=== PATIENT | male | born 1945 | race Caucasian/White ===

== ENCOUNTER → 2017-05-06 | Outpatient (CLI) | payer MEDICARE ==
[~2017-05-06] MED LIST: ACYCLOVIR800 MG PO; ASPIRIN 81MG TA81 MG PO; GABAPENTIN300 M1 PO; Glyburide and M1 TAB PO; LEVOTHYROXINE0.05 MG NG; LIVALO4 MG PO; LOPRESSOR 25MG.25 MG PO
[2017-05-06 11:59] LABS: HEMOGLOBIN 14.3 g/dL (14.1-18.0); LYMPH # 1.4 K/mm3 (0.7-4.5); LYMPH % 20.7 % (10-50)
[2017-05-06 12:33] LABS: BUN 22 mg/dL (7-18); GFR (ESTIMATED) 60 ML/MIN (>60)
== END ==
LOC: LAB 11:27
PROVIDERS: Emergency Medicine
DX: R53.83 Other fatigue (principal); E11.9 Type 2 diabetes mellitus without complications

== ENCOUNTER 2017-07-03 07:31 | Day surgery (SDC) | payer MEDICARE ==
[2017-07-03 08:08] LABS: HEMOGLOBIN 15.3 g/dL (14.1-18.0); LYMPH # 1.5 K/mm3 (0.7-4.5); LYMPH % 16.6 % (10-50)
[2017-07-03 08:27] LABS: BUN 19 mg/dL (7-18); GFR (ESTIMATED) 50 ML/MIN (>60)
--- NOTE | 2017-07-03 12:18 | RADIOLOGY REPORT PS360 ---
CARDIAC CATHETERIZATION DATE OF CATHETERIZATION:07/03/2017 11:11 AM PROCEDURES: 1. Left heart catheterization 2. Left ventriculogram 3. Selective coronary angiogram 4. Selective engagement of the left internal mammary artery with angiography 5. Selective engagement of the saphenous vein graft to the her complex artery 6. Drug-eluting stent deployment to the ostial proximal mid dominant right coronary artery 7. Drug-eluting stent deployment to the posterior descending artery INDICATION FOR TEST: 1. History of coronary artery disease 2. History of coronary artery bypass surgery 3. Angina pectoris class III and IV Informed consent was obtained prior to the procedure. COMPLICATIONS: None ESTIMATED BLOOD LOSS: Less than 10 ml. TECHNIQUE: One percent lidocaine was used to anesthetize the right groin. The right femoral artery was accessed via the Seldinger technique. A 4-German sheath was placed in the right femoral artery. The JL-4 and JR-4 catheter was also used to perform left heart catheterization left ventriculogram and selective coronary angiography. The JR4 catheter was used intubate the saphenous vein graft to the circumflex artery as well as selectively engage the left internal mammary artery. At the end of the diagnostic procedure 9000 units of heparin was administered intravenously giving an ACT out of range. Brilinta 180 mg was given orally. The 4 German sheath was exchanged for a 6 German sheath and an 3 DRC guide catheter was used intubate the right coronary artery. Immediately there was severe dampening upon engagement. With the guide catheter in the right coronary cusp choice PT extra-support wire was placed distally and a 3 mm x 12 mm resolute Alfa stent was deployed at 22 mckenna reducing the ostial stenosis to less than 10%. There was significant trouble getting just the smallest balloon pass the stent due to the calcification in the proximal segment. Eventually a 2 mm balloon was placed into the posterior descending artery with the assistance of a guideliner and deployed at 20 mckenna.. This balloon was also brought back proximally distal to the first stent and deployed at 20 mckenna. At this point a 3 mm x 38 mm resolute [place] stent was placed distal to the first stent yet still overlapping and deployed at 20 mckenna. Following this a 2.25 x 30 mm resolute [place] stent was deployed in the posterior ascending artery at 20 mckenna reducing the severe stenosis to 0%. An additional 3 mm x 38 mm resolute [place] stent was placed distal to the second stent and then deployed at 20 mckenna. The balloon was brought back between the 2 deployed at 20 and brought back proximally and even into the right coronary cusp at 20 and 22 mckenna. The ACT was 296 at the end of the procedure therefore an additional 2000 units of heparin was administered intravenously. CHILANGO-3 flow was present before and after the procedure. The end of the procedure the apparatus was removed the groin is reprepped closure changed sheath was removed good hemostasis was achieved using Perclose device patient transferred to the postop holding area in stable condition ANGIOGRAPHIC RESULTS: 1. The left main artery has an ostial 50-60% stenosis 2. The left anterior descending artery is patent with antegrade flow on engagement and injection. There is a proximal 40% stenosis mid vessel 50% stenoses with competitive flow from the left internal mammary artery 3. The circumflex artery ostially occluded 4. The right coronary artery is a dominant vessel and has an ostial 90% stenosis proximal calcified 50% stenosis mid vessel 50% calcified stenoses and a 90% stenosis at the posterior descending artery. 5. The FISHER ventriculogram reveals normal 65% 6. The left ventricular end-diastolic pressure 10 mmHg 7. The saphenous vein graft to the circumflex artery is widely patent 8. The internal mammary artery to the LAD is widely patent IMPRESSION: 1. Severe disease in the dominant right coronary artery which is unbypassed 2. Successful stenting of the ostial proximal mid dominant right coronary artery severe disease reduced to 0% with 3 drug-eluting stents 3. Successful stenting of a critically disease posterior descending artery 90% stenosis reduced to 0% with 1 drug-eluting stent 4. Patent QUIÑONES to the LAD 5. Patent saphenous vein graft to circumflex flexor artery 6. Normal ejection fraction 7. Normal left ventricular end-diastolic pressure PLAN: 1. Brilinta and aspirin 2. LDL less than 55 3. Avoidance of tobacco products 4. Cardiac rehabilitation 5. Risk factor modification
--- NOTE | 2017-07-03 14:56 | CARDIOVASCULAR REPORT ---
"Cerebrovascular Exam Indications: 785.9 Bruit. IMPRESSIONS 1. The bilateral vertebral arteries are patent with normal antegrade flow. 2. Study suggests less than 20% stenosis involving the right internal carotid artery. 3. Study suggests less than 20% stenosis involving the left internal carotid artery. 4. Moderate, heterogeneousplaque seen in the distal CCA near the bulb. History: A bruit of the left carotid artery. Coronary artery disease. Risk factors: Hypertension. Diabetes mellitus. Hyperlipidemia. Carotid duplex study. Complete study and Doppler flow study including spectral analysis, color and mckenna scale imaging. Location: Vascular laboratory. Patient status: Outpatient. Tables: Arterial flow: + +--------+--------+ |Location |V sys |V ed | + +--------+--------+ |Right CCA - proximal|84.9cm/s|18.9cm/s| + +--------+--------+ |Right CCA - distal |69.7cm/s|14.2cm/s| + +--------+--------+ |Right ECA |78.6cm/s|--------| + +--------+--------+ |Right ICA - proximal|75.1cm/s|23.1cm/s| + +--------+--------+ |Right ICA - mid |92.4cm/s|27cm/s | + +--------+--------+ |Right ICA - distal |96.8cm/s|28.3cm/s| + +--------+--------+ |Right vertebral |79.4cm/s|--------| + +--------+--------+ |Left CCA - proximal |101cm/s |20.4cm/s| + +--------+--------+ |Left CCA - distal |80cm/s |16.5cm/s| + +--------+--------+ |Left ECA |72.9cm/s|--------| + +--------+--------+ |Left ICA - proximal |70cm/s |19.9cm/s| + +--------+--------+ |Left ICA - mid |72.2cm/s|25.4cm/s| + +--------+--------+ |Left ICA - distal |90.5cm/s|31.4cm/s| + +--------+--------+ |Left vertebral |35.2cm/s|--------| + +--------+--------+ Velocity ratios: + + + + + + | |Right, V sys|Right, V ed|Left, V sys|Left, V ed| + + + + + + |Max ICA/dist CCA|1.39 |1.99 |1.13 |1.9 | + + + + + + (Report amended ) Electronically signed by: Josiah Quinones [id number]"
--- NOTE | 2017-07-03 16:33 | RADIOLOGY REPORT PS360 ---
PROCEDURE: 2-D M-mode and color Doppler study INDICATIONS FOR THE TEST: Chest pain X COPD Heart Murmur Tobacco Smoking Palpitations Fatigue Syncope Edema HypertensionXDiabetes Mellitus Rheumatic Fever SOB DOEXObesity Hyperlipidemia Family History HD Additional History CAD,DEFINITY GIVEN PATIENT INFORMATION HEIGHT: 69 WEIGHT:193 GENDER: Male B/P:127/76 2-D/M-MODE INTERPRETATION: 2-D MEASUREMENTS OBSERVED VALUES IN CMS Right Ventricular Dimension (RVDd) 2.4 Interventricular Septum (Thickness)(IVsd) 1.2 Left Ventricular Internal Dimensions(LVIDd) 4.1 Left Ventricular Posterior Wall (Thickness)(LVPWd) 1.2 Aortic Root 2.5 Aortic Cusp Separation 1.8 Left Atrial Dimensions (LAD) 3.8 2D 1. Technically very difficult study because of the patient's factor and poor acoustic windows, endocardial surfaces are poorly visualized. 2. The left atrium is mildly enlarged, left ventricle is normal size, there is mild concentric left ventricular hypertrophy, visually estimated ejection fraction of 55% with no obvious regional wall motion abnormality. 3. The right atrium and right ventricle are normal size and contractility. 4. The aortic valve is minimally thickened and fibrosed. 5. The mitral and tricuspid valve leaflets are minimally thickened. 6. The pulmonic valve is poorly visualized. 7. No significant pericardial effusion noted. DOPPLER INTERROGATION: Doppler interrogation of the aortic, mitral and tricuspid valvular presence of mild aortic, mild mitral and tricuspid regurgitation, tricuspid regurgitant jet velocity insufficient for calculation of the right ventricular systolic pressure, grade 1 diastolic dysfunction seen with tissue Doppler evidence of raised left atrial pressure. CONCLUSION: 1. Technically very difficult study because of the patient's factor and poor acoustic windows, endocardial surface of poorly visualized. 2. Mildly left atrium, normal left ventricular size, mild concentric left ventricular hypertrophy, visually estimated ejection fraction 55% with no obvious regional wall motion abnormality, grade 1 diastolic dysfunction seen with tissue Doppler evidence of raised left atrial pressure. 3. Mild aortic, mild mitral and tricuspid regurgitation. 4. No significant pericardial effusion noted.
[2017-07-03 16:39] VITALS: BP 141/67
== END 2017-07-03 16:40 | disposition home or self-care (01) ==
LOC: CATHLAB 07:31
PROVIDERS: Internal Medicine
PROC: B2111ZZ Fluoroscopy of Multiple Coronary Arteries using Low Osmolar Contrast (ICD-10-PCS; 2017-07-03)
PROC: B2151ZZ Fluoroscopy of Left Heart using Low Osmolar Contrast (ICD-10-PCS; 2017-07-03)
PROC: 027035Z Dilation of Coronary Artery, One Artery with Two Drug-eluting Intraluminal Devices, Percutaneous Approach (ICD-10-PCS; 2017-07-03)
PROC: 4A023N7 Measurement of Cardiac Sampling and Pressure, Left Heart, Percutaneous Approach (ICD-10-PCS; principal; 2017-07-03 09:45)
DX: Z95.1 Presence of aortocoronary bypass graft (principal); Z72.0 Tobacco use; R94.39 Abnormal result of other cardiovascular function study; I25.118 Atherosclerotic heart disease of native coronary artery with other forms of angina pectoris; R09.89 Other specified symptoms and signs involving the circulatory and respiratory systems
CPT/HCPCS: C1725; C1760; C1769; C1876; C1894; J1644; Q9967